=== PATIENT | female | born 1975 | race African-American/Black ===

== ENCOUNTER 2018-07-27 18:55 | Emergency (ER) | payer OTHER ==
[~2018-07-27] VITALS: Ht 165.1 cm; Wt 88.5 kg
[~2018-07-27 18:55] MED LIST: NOHOMEMEDICATIONS; TUSSIONEX PENN473 ML PO; VENTOLIN HFA 1818 GM INH; ZPAK PO
[2018-07-27 18:56] VITALS: BP 151/94
[2018-07-27 19:31] LABS: URINE BILIRUBIN NEGATIVE (Negative); URINE BLOOD NEGATIVE (Negative); URINE CLARITY CLEAR; URINE COLOR YELLOW; URINE GLUCOSE-RANDOM* NEGATIVE (Negative); URINE KETONES NEGATIVE (Negative); URINE LEUKOCYTES-REFLEX NEGATIVE (Negative); URINE NITRITE-REFLEX NEGATIVE (Negative); URINE PROTEIN (DIPSTICK) NEGATIVE (Negative); URINE UROBILINOGEN 0.2 E.U./dl (0.2-1.0)
[2018-07-27] MEDS ORDERED: ROBAXIN 750 MG750 M1 PO (20:02)
[2018-07-27 20:25] LABS: HEMATOCRIT 40.3 % (37.0-47.0); HEMOGLOBIN 13.9 gm/dL (12.0-15.0); MCH 29.6 pg (26.0-34.0); MCHC 34.5 g/dL (28.0-37.0); MCV 85.7 fL (80.0-100.0); RBC 4.7 mil/uL (4.20-5.00); RDW 13.5 % (10.5-14.5); WBC 4.2 thou/uL (4.0-11.0)
[2018-07-27 20:36] LABS: CALCIUM 8.9 mg/dL (8.5-10.1); CREATININE 0.8 mg/dL (0.6-1.0); POTASSIUM 3.6 mmol/L (3.5-5.1)
[2018-07-27] MEDS ORDERED: NAPROSYN500 MG PO (20:49)
[2018-07-27] MEDS ORDERED: NORFLEX100 MG PO (20:49)
== END 2018-07-27 21:12 | disposition home or self-care (01) ==
LOC: ER 18:55
PROVIDERS: Physician Assistant
DX: S39.012A Strain of muscle, fascia and tendon of lower back, initial encounter (principal); Z88.0 Allergy status to penicillin; X58.XXXA Exposure to other specified factors, initial encounter; Y93.89 Activity, other specified; Y92.89 Other specified places as the place of occurrence of the external cause; Y99.8 Other external cause status